=== PATIENT | male | born 1955 ===

== ENCOUNTER 2021-01-09 05:45 | Day surgery (SDC) | payer OTHER ==
[~2021-01-09 05:45] MED LIST: CRESTOR5 MG PO; PLAVIX75 MG PO
[2021-01-09] MEDS ORDERED: MIRALAX17 GM PO (09:15)
[2021-01-09] MEDS ORDERED: ULTRAM50 MG PO (09:15)
[2021-01-09] MEDS ORDERED: TYLENOL ARTHRI650 MG PO (09:15)
[2021-01-09] MEDS ORDERED: NEURONTIN300 MG PO (09:15)
== END 2021-01-09 15:20 | disposition home or self-care (01) ==
LOC: CIR.AMB 05:45
PROVIDERS: ATTEND Surgery
DX: K42.9 Umbilical hernia without obstruction or gangrene (principal); K40.90 Unilateral inguinal hernia, without obstruction or gangrene, not specified as recurrent; Z20.822 Contact with and (suspected) exposure to COVID-19